=== PATIENT | male | born 1975 | race Caucasian/White ===

== ENCOUNTER 2017-03-12 16:43 | Emergency (ER) | payer BC ==
--- NOTE | 2017-03-12 18:03 | ER Document Report ---
HPI - HPI Patient complains to provider of: lower back pain Pain Level: 4 Context: Patient is a 42-year-old male comes emergency department for chief complaint of lower back pain and left sided back pain with radiations and shooting pain down the back of the left leg. He states 2 days ago he got his arms up underneath a trailer hitch and tried to lift the hitch, he states he felt a sharp pain in his back and thought he heard a sound like "a stick snapping". He denies incontinence, focal numbness or weakness. He denies any daily medications, history of IV drug abuse, immunocompromised condition. - CONSTITUTIONAL Constitutional: DENIES: Fever - REPRODUCTIVE Reproductive: DENIES: : - MUSCULOSKELETAL Musculoskeletal: REPORTS: Back Pain - DERM Skin Color: Sarita - NURSING COMMENTS Comment: pt c/c was pulling trailer hitch off his truck and felt a pop in lower back pain is radiating down right leg. onset monday Past Medical History - General Information source: Patient - Social History Smoking Status: Current Every Day Smoker Cigarette use (# per day): No Chew tobacco use (# tins/day): No Frequency of alcohol use: None Drug Abuse: None Family History: Reviewed & Not Pertinent - Medical History Medical History: Negative Renal/ Medical History: Denies: Hx Peritoneal Dialysis Past Surgical History: Reports: Hx Testicular Surgery - Immunizations Hx Diphtheria, Pertussis, Tetanus Vaccination: Yes Vertical Provider Document - CONSTITUTIONAL General Appearance: WD/WN, No Apparent Distress - INFECTION CONTROL TRAVEL OUTSIDE OF THE [place] IN LAST 30 DAYS: No - HEENT HEENT: Atraumatic, Normocephalic - RESPIRATORY Respiratory: Breath Sounds Normal, No Respiratory Distress O2 Sat by Pulse Oximetry: 97 - CARDIOVASCULAR Cardiovascular: Regular Rate, Regular Rhythm - GI/ABDOMEN Gastrointestinal: Abdomen Soft, Abdomen Non-Tender - BACK Back: negative: Normal Inspection - pain in midline and left lumbar region, no saddle anesthesia, positive straight leg raise on the left, positive axial loading test. Normal upper and lower extremity strength, distal neurovascular exam - NEURO Level of Consciousness: Awake, Alert Course - Re-evaluation Re-evalutation: Lumbar x-ray with no acute or chronic abnormal findings. Examination and symptoms most consistent with herniated disc. Treating with prednisone, muscle relaxers, work release. Discussed follow-up instructions and return precautions with patient. Patient states understanding and agreement. - Vital Signs Vital signs: Temp Pulse Resp BP Pulse Ox 98.2 F 63 20 135/72 H 97 03/12/17 16:54 03/12/17 16:54 03/12/17 16:54 03/12/17 16:54 03/12/17 16:54 Discharge - Discharge Clinical Impression: Lower back pain Qualifiers: Chronicity: acute Back pain laterality: left Sciatica presence: with sciatica Sciatica laterality: sciatica of left side Qualified Code(s): M54.42 - Lumbago with sciatica, left side Condition: Stable Disposition: HOME, SELF-CARE Additional Instructions: Your symptoms and examination are consistent with a herniated disc in the lumbar spine. This takes some time to resolve, take the prednisone as prescribed, take the Robaxin muscle relaxer, apply heat to the area, avoid lifting and twisting, and rest. The x-ray does not show any concerning findings. Follow-up with primary care. Return the emergency department for any concerning symptoms including loss of bowel or bladder functioning, new numbness, fever, or any other concerning symptoms. Prescriptions: Methocarbamol [Robaxin 750 mg Tablet] 750 mg PO Q6 #20 tablet Prednisone [Deltasone 10 mg Tablet] 10 mg PO ASDIR PRN #21 tablet PRN Reason: Forms: Return to Work Referrals: MICHEL INTERIANO NP [Primary Care Provider] - Follow up as needed
--- NOTE | 2017-03-12 18:50 | RADIOLOGY REPORT (SQ) ---
EXAM DESCRIPTION: L SPINE WHOLE COMPLETED DATE/TIME: 03/12/2017 6:25 pm REASON FOR STUDY: midline lower back pain COMPARISON: None. NUMBER OF VIEWS: Five views including obliques. TECHNIQUE: AP, lateral, oblique, and sacral radiographic images acquired of the lumbar spine. LIMITATIONS: None. FINDINGS: MINERALIZATION: Normal. SEGMENTATION: Normal. No transitional anatomy. ALIGNMENT: Normal. VERTEBRAE: Maintained height. No fracture or worrisome bone lesion. DISCS: Preserved height. No significant osteophytes or end plate irregularity. POSTERIOR ELEMENTS: Pedicles and facets are intact. No pars defect or posterior arch defects. HARDWARE: None in the spine. PARASPINAL SOFT TISSUES: Normal. PELVIS: Intact as visualized. No fractures or worrisome bone lesions. SI joints intact. OTHER: No other significant finding. IMPRESSION: No significant findings. TECHNICAL DOCUMENTATION: JOB ID: [id number] [employer]- All Rights Reserved
[2017-03-12] MEDS ORDERED: PREDNISONE 20 MG TABLET PO ONE (19:09)
[2017-03-12] MEDS ORDERED: PROMETHAZINE HCL 25 MG TABLET PO ONE (19:09)
[2017-03-12] MEDS ORDERED: OXYCODONE-ACETAMINOPHEN 5-325 MG TABLET PO ONE (19:09)
[2017-03-12 19:26] VITALS: BP 134/75
== END 2017-03-12 19:34 | disposition home or self-care (01) ==
LOC: ER 16:43
DX: M54.42 Lumbago with sciatica, left side (principal); F17.200 Nicotine dependence, unspecified, uncomplicated
CPT/HCPCS: 99283; 72110; J7512